=== PATIENT | male | born 1965 | race Caucasian/White ===

== ENCOUNTER 2016-10-13 11:22 | Emergency (ER) | payer OTHER ==
--- NOTE | 2016-10-13 12:44 | DIAGNOSTIC IMAGING REPORT ---
PROCEDURE: US VENOUS - RIGHT EXT INDICATION: Right lower extremity swelling x 2 days. TECHNIQUE: Duplex sonography of the deep venous system in the right lower extremity was performed. Compression and augmentation techniques were used. COMPARISON: None. FINDINGS: Normal compression of the greater saphenous, common femoral, superficial femoral, popliteal, peroneal, and posterior tibial veins. Normal augmentation. There is no evidence of superficial or deep venous thrombosis. There is a 2 cm reactive right inguinal lymph node present. IMPRESSION: 1. Negative venous ultrasound of the right lower extremity.
--- NOTE | 2016-10-13 13:04 | ED CLINICAL REPORT ---
Clinical Report - Physicians/Mid Levels [facility] [address] [place] [address] 10/13/2016 11:23 Patient: ADILSON DOYLE Time Seen: 1140; initial patient contact. Arrived- By private vehicle. Historian- patient. HISTORY OF PRESENT ILLNESS Chief Complaint: SKIN RASH. This started past few days and is still present and worsening. It was abrupt in onset and has been constant but is not gone now. It is described as painful. It has been located on the left lower extremity. No cause has been identified. (No history of DVT or PE. No recent trauma or prolonged immobilization. No recent surgery. No oral contraceptive use. No hormone replacement. No hemoptysis. No hematemesis. No chest pain. No shortness of breath.). Similar symptoms previously: None. Recent medical care: The patient was seen recently in a clinic (Total to the emergency department for evaluation of DVT.). REVIEW OF SYSTEMS No fever, chills, difficulty breathing or chest pain. All systems otherwise negative, except as recorded above. PAST HISTORY See nurses notes. Tetanus immunization status is up-to-date. Medications: Omeprazole Oral. Allergies: No Known Drug Allergy. SOCIAL HISTORY Never smoker. No alcohol use or drug use. No recent travel. Is a local resident. PHYSICAL EXAM Appearance: Alert. Oriented X3. No acute distress. Eyes: Pupils equal, round and reactive to light. Conjunctivae and eyelids normal. ENT: Ears normal. Nose normal. Pharynx normal. CVS: Normal heart rate and rhythm. Heart sounds normal. Respiratory: No respiratory distress. Breath sounds normal. Chest nontender. Abdomen: Nontender. No organomegaly. Skin: Medium area of cellulitis with erythema and warmth (right distal anterior leg). Extremities: Normal external inspection. Extremities nontender. LABS, X-RAYS, AND EKG Duplex Ultrasound: (PROCEDURE: US VENOUS - RIGHT EXT INDICATION: Right lower extremity swelling x 2 days. TECHNIQUE: Duplex sonography of the deep venous system in the right lower extremity was performed. Compression and augmentation techniques were used. COMPARISON: None. FINDINGS: Normal compression of the greater saphenous, common femoral, superficial femoral, popliteal, peroneal, and posterior tibial veins. Normal augmentation. There is no evidence of superficial or deep venous thrombosis. There is a 2 cm reactive right inguinal lymph node present. IMPRESSION: 1. Negative venous ultrasound of the right lower extremity.). The study was independently viewed by me and interpreted by the radiologist. The study was discussed with the radiologist (via pacs). Laboratory Tests: [id number]: (PAMELA: 10/13/2016 12:00) ( MsgRcvd 10/13/2016 12:33) Final results Test Result Flag Units (Reference) D-DIMER QUANTITATIVE < 0.27 L ug/mLFEU (0.27-0.52) The primary value of this quantitative assay relates toits negative predictive value (i.e. exclusion) of pulmonaryembolism/deep vein thrombosis/DIC.Elevated levels of d-dimer may also occur with:, age, cancer, inflammation, liver disease,post-op, infection, hematoma, coronary disease, peripheralarteriopathy, bleeding disorders and thrombolytic treatment.Results should be correlated with other clinical andradiological data.Testing Methodology: Latex Immunoassay . PROGRESS AND PROCEDURES Course of Care: he patient is a 51-year-old male with no pertinent past medical history presenting for Evaluation of swelling and redness the right lower extremity. Appears to be cellulitic in nature. Patient was told to go to the emergency department by primary care for a vaginal DVT. Although this is a possibility, feel the patient more likely has a cellulitic infection of the right lower currently. Patient is agreeable to the treatment plan for Evaluation of possible DVT. the patient's workup was remarkable for the findings above. Patient with a negative d-dimer and negative ultrasound of the affected extremity. Because the patient's negative workup in the emergency department, do not fill patient is a DVT. Feel the patient's workup is related to the cellulitic infection. Patient will be treated with outpatient antibiotics. Patient without any systemic symptoms. Vital signs are in the emergency D. Disposition: Discharged. Condition: good. CLINICAL IMPRESSION Hypertensive. Oxygen saturation normal. Cellulitis of the right lower leg (acute). INSTRUCTIONS Warnings: GENERAL WARNINGS: Return or contact your physician immediately if your condition worsens or changes unexpectedly, if not improving as expected, or if other problems arise. Specifically return if pain, vomiting, bleeding, breathing difficulty or fever. Your Current Medications: CONTINUE TAKING THE FOLLOWING MEDICATIONS: Omeprazole Oral. Prescription Medications: Bactrim DS 800 mg / 160 mg: take 1 tablet orally every 12 hours for 10 days. No refill. Substitution is permissible. Keflex 500 mg: take 1 capsule orally every 8 hours for 10 days. No refill. Substitution is permissible. (disp 30 caps) [place] 5 mg / 325 mg tablets: take 1 orally every 6 hours as needed for pain. Dispense ten (10). No refill. Substitution is permissible. OTC Medications: Motrin (available over the counter): take according to label instructions. Follow-up: Return to the emergency department as needed. Follow up with your doctor in three days. Reason for referral: recheck today's concerns. Summary of care provided to patient via paper. Screening today revealed the patient's blood pressure to be in the normal range. The patient should follow up with a primary care provider for blood pressure management. Understanding of the discharge instructions verbalized by patient. (Electronically signed by Reuben Ennis Dr. 10/16/2016 5:27)
--- NOTE | 2016-10-13 13:04 | ED ORDER SUMMARY ---
..... Patient: ADILSON DOYLE OrderSheet [facility] VisitID: [id number] [place] [address] 51y, M Registration Date/Time: 10/13/2016 ORDER SHEET Weight: 114.3 kg (stated) Allergies: No Known Drug Allergy GENERAL ORDERS: US Venous Right Urgent (11:48 10/13/2016 Ila Hammond) (Ack 11:51 Bella) (12:42 MWinterer R.N.) D-Dimer Urgent (11:48 10/13/2016 Ila Hammond) (Ack 11:51 Bella) (12:09 MWinterer R.N.) MEDICATION ORDERS: Bactrim DS PO (Tablet 800-160 mg) 1 tab (NOW) (11:48 10/13/2016 Ila Hammond) (Ack 11:54 MWinterer R.N.) (11:58 KWilliams R.N.) Keflex PO 500 mg (NOW) (11:48 10/13/2016 Ila Hammond) (Ack 11:54 MWinterer R.N.) (11:58 KWilliams R.N.) IV FLUIDS: ORDER SHEET NOTES: [Electronically signed by Mary Rand R.N. (17:11 10/13/2016)] [Electronically signed by Reuben Ennis Dr. (05:27 10/16/2016)] [Electronically locked/signed by Mary Rand R.N. (17:11 10/13/2016)]
--- NOTE | 2016-10-13 13:04 | ED NURSING NOTES ---
Clinical Report - Nurses [facility] [address] [place] [address] 10/13/2016 11:23 Patient: ADILSON DOYLE TRIAGE Acuity: LEVEL 3. Chief Complaint: RIGHT LOWER EXTREMITY PAIN, SWELLING and REDNESS. Alert. No acute distress. SEPSIS SCREEN: Sepsis Screen. Negative (no infection suspected/documented). --11:38 Mary Rand R.N. 11:32 10/13/16. BP: 156/84. HR: 90. RR: 16. O2 saturation: 98% on room air. Temp: 97.8 F (oral). Pain level now: 07/21. --11:38 Mary Rand R.N. <<STRICKEN ENTRY-- Weight: 0.9 kg stated. Height/Length: 71 inches Per Patient. BMI: 0.3. --END STRIKE>> Correction --11:37 Mary Rand R.N.. Weight: 114.3 kg stated. Height/Length: 71 inches Per Patient. BMI: 35.2. --11:37 Mary Rand R.N. Medications Omeprazole Oral. --11:36 Mary Rand R.N. Medication/allergy information source: the patient. --11:38 Mary Rand R.N. Allergies No Known Drug Allergy. --11:37 Mary Rand R.N. History Arrived by private vehicle. Historian: patient. Unaccompanied. Primary physician (Payton). This occurred (2 days ago). ( Pt reports chills and vomiting 2 days ago for 1 day. He states he also felt he had a "janene horse" in his right leg. He reports pain, swelling and redness to his right leg starting 2 days ago.). PAST MEDICAL HX: Immunizations: up-to-date. SOCIAL HX: Never smoker. No alcohol use or drug use. FALL RISK ASSESSMENT: Fall risk assessment completed. No fall risk identified. NUTRITIONAL RISK ASSESSMENT: The nutritional risk assessment revealed no deficiencies. FUNCTIONAL ASSESSMENT: Functional assessment: no impairments noted. LEARNING NEEDS ASSESSMENT: The learning needs assessment revealed no barriers. SKIN INTEGRITY ASSESSMENT: Skin integrity risk assessment completed. No skin integrity risk identified. --11:38 Mary Rand R.N. PROBLEMS: Ureterolithiasis. Gastroesophageal Reflux Disease. --11:37 Mary Rand R.N. ADDITIONAL SURGERIES: Hernia Repair. --11:37 Mary Rand R.N. Assessment GENERAL / NEURO / PSYCH: Alert. Oriented X 4. Appears in no acute distress. [place] Coma Scale: 15- eyes open spontaneously (4); best verbal response- oriented x 4 (5); best motor response- obeys commands (6). Patient appears calm and cooperative. RESPIRATORY: Respirations not labored. CVS: Capillary refill less than 2 seconds. GI / : Abdomen soft. SKIN: Mucous membranes are pink. Skin is warm and dry. --11:38 Mary Rand R.N. Interventions ID band on patient. To treatment room. Ambulatory. --11:38 Mary Rand R.N. PHYSICAL ASSESSMENT Ambulatory to room. GENERAL / NEURO / PSYCH: Oriented X 4. Alert. Appears in no acute distress. EXTREMITIES: 1+ edema of the right lower extremity involving the ankle and lower leg. Extremity pulses are within normal limits. Neuro-vascular status intact to the extremity. Normal gait. Right leg: tenderness, swelling and erythema. Right ankle: tenderness, swelling and erythema. SKIN: Skin intact. Skin is warm and dry. --11:43 Mary Rand R.N. NURSING PROGRESS NOTES Patient gowned. Two patient identifiers checked. Call light placed in reach. Side rails up x 1. Bed placed in lowest position. Brakes of bed on. Patient ready for evaluation- chart flagged and ED physician notified. --11:43 Mary Rand R.N. 11:58 10/13/2016 Bactrim DS (Sulfamethoxazole-TMP DS) PO Tablets 1 tab given. Allergies verified and confirmed 5 rights. --11:58 Guy Ahumada R.N. 11:58 10/13/2016 Keflex (Cephalexin) PO Capsules 500 mg given. Allergies verified and confirmed 5 rights. --11:58 Guy Ahumada R.N. 12:17 10/13/16. cnc technician at the patient's bedside. --12:17 Mary Rand R.N. DISPOSITION / DISCHARGE 13:41 10/13/16. BP: 130/78. HR: 82. RR: 20. O2 saturation: 98%. Temp: 99.1 F. --13:42 Rafia Soto Departure time: 13:35 Oct 13 2016. Condition at departure: improved and stable. No learning barriers present. Discharge instructions provided and reviewed with the patient. Reviewed medication(s). Prescription(s) given to the patient. Patient verbalized understanding. Written instructions provided in [place]. The patient was discharged by the physician. He was discharged home and accompanied by bag press operator. He left the Emergency Department ambulatory and via private vehicle. Winch Driver driving. --17:11 Mary Rand R.N. Locked/Released at 10/13/2016 17:11 by Mary Rand R.N.
--- NOTE | 2016-10-13 13:04 | ED ORDER SUMMARY ---
..... Patient: ADILSON DOYLE OrderSheet [facility] VisitID: [id number] [place] [address] 51y, M Registration Date/Time: 10/13/2016 ORDER SHEET Weight: 114.3 kg (stated) Allergies: No Known Drug Allergy GENERAL ORDERS: US Venous Right Urgent (11:48 10/13/2016 Ila Hammond) (Ack 11:51 Bella) (12:42 MWinterer R.N.) D-Dimer Urgent (11:48 10/13/2016 Ila Hammond) (Ack 11:51 Bella) (12:09 MWinterer R.N.) MEDICATION ORDERS: Bactrim DS PO (Tablet 800-160 mg) 1 tab (NOW) (11:48 10/13/2016 Ila Hammond) (Ack 11:54 MWinterer R.N.) (11:58 KWilliams R.N.) Keflex PO 500 mg (NOW) (11:48 10/13/2016 Ila Hammond) (Ack 11:54 MWinterer R.N.) (11:58 KWilliams R.N.) IV FLUIDS: ORDER SHEET NOTES: [Electronically signed by Mary Rand R.N. (17:11 10/13/2016)] [Electronically signed by Reuben Ennis Dr. (05:27 10/16/2016)] [Electronically locked/signed by Mayr Rand R.N. (17:11 10/13/2016)]
--- NOTE | 2016-10-13 13:04 | ED NURSING NOTES ---
Clinical Report - Nurses [address] [place] [address] 10/13/2016 11:23 Patient: ADILSON DOYLE TRIAGE Acuity: LEVEL 3. Chief Complaint: RIGHT LOWER EXTREMITY PAIN, SWELLING and REDNESS. Alert. No acute distress. SEPSIS SCREEN: Sepsis Screen. Negative (no infection suspected/documented). --11:38 Mary Rnad R.N. 11:32 10/13/16. BP: 156/84. HR: 90. RR: 16. O2 saturation: 98% on room air. Temp: 97.8 F (oral). Pain level now: 07/21. --11:38 Mary Rand R.N. <<STRICKEN ENTRY-- Weight: 0.9 kg stated. Height/Length: 71 inches Per Patient. BMI: 0.3. --END STRIKE>> Correction --11:37 Mary Rand R.N.. Weight: 114.3 kg stated. Height/Length: 71 inches Per Patient. BMI: 35.2. --11:37 Mary Rand R.N. Medications Omeprazole Oral. --11:36 Mary Rand R.N. Medication/allergy information source: the patient. --11:38 Mary Rand R.N. Allergies No Known Drug Allergy. --11:37 Mary Rand R.N. History Arrived by private vehicle. Historian: patient. Unaccompanied. Primary physician (Payton). This occurred (2 days ago). ( Pt reports chills and vomiting 2 days ago for 1 day. He states he also felt he had a "janene horse" in his right leg. He reports pain, swelling and redness to his right leg starting 2 days ago.). PAST MEDICAL HX: Immunizations: up-to-date. SOCIAL HX: Never smoker. No alcohol use or drug use. FALL RISK ASSESSMENT: Fall risk assessment completed. No fall risk identified. NUTRITIONAL RISK ASSESSMENT: The nutritional risk assessment revealed no deficiencies. FUNCTIONAL ASSESSMENT: Functional assessment: no impairments noted. LEARNING NEEDS ASSESSMENT: The learning needs assessment revealed no barriers. SKIN INTEGRITY ASSESSMENT: Skin integrity risk assessment completed. No skin integrity risk identified. --11:38 Mary Rand R.N. PROBLEMS: Ureterolithiasis. Gastroesophageal Reflux Disease. --11:37 Mary Rand R.N. ADDITIONAL SURGERIES: Hernia Repair. --11:37 Mary Rand R.N. Assessment GENERAL / NEURO / PSYCH: Alert. Oriented X 4. Appears in no acute distress. [place] Coma Scale: 15- eyes open spontaneously (4); best verbal response- oriented x 4 (5); best motor response- obeys commands (6). Patient appears calm and cooperative. RESPIRATORY: Respirations not labored. CVS: Capillary refill less than 2 seconds. GI / : Abdomen soft. SKIN: Mucous membranes are pink. Skin is warm and dry. --11:38 Mary Rand R.N. Interventions ID band on patient. To treatment room. Ambulatory. --11:38 Mary Rand R.N. PHYSICAL ASSESSMENT Ambulatory to room. GENERAL / NEURO / PSYCH: Oriented X 4. Alert. Appears in no acute distress. EXTREMITIES: 1+ edema of the right lower extremity involving the ankle and lower leg. Extremity pulses are within normal limits. Neuro-vascular status intact to the extremity. Normal gait. Right leg: tenderness, swelling and erythema. Right ankle: tenderness, swelling and erythema. SKIN: Skin intact. Skin is warm and dry. --11:43 Mary Rand R.N. NURSING PROGRESS NOTES Patient gowned. Two patient identifiers checked. Call light placed in reach. Side rails up x 1. Bed placed in lowest position. Brakes of bed on. Patient ready for evaluation- chart flagged and ED physician notified. --11:43 Mary Rand R.N. 11:58 10/13/2016 Bactrim DS (Sulfamethoxazole-TMP DS) PO Tablets 1 tab given. Allergies verified and confirmed 5 rights. --11:58 Guy Ahumada R.N. 11:58 10/13/2016 Keflex (Cephalexin) PO Capsules 500 mg given. Allergies verified and confirmed 5 rights. --11:58 Guy Ahumada R.N. 12:17 10/13/16. operations and maintenance technician at the patient's bedside. --12:17 Mary Rand R.N. DISPOSITION / DISCHARGE 13:41 10/13/16. BP: 130/78. HR: 82. RR: 20. O2 saturation: 98%. Temp: 99.1 F. --13:42 Rafia Soto Departure time: 13:35 Oct 13 2016. Condition at departure: improved and stable. No learning barriers present. Discharge instructions provided and reviewed with the patient. Reviewed medication(s). Prescription(s) given to the patient. Patient verbalized understanding. Written instructions provided in [place]. The patient was discharged by the physician. He was discharged home and accompanied by claim clinician. He left the Emergency Department ambulatory and via private vehicle. Burglar Alarm Superintendent driving. --17:11 Mary Rand R.N. Locked/Released at 10/13/2016 17:11 by Mary Rand R.N.
--- NOTE | 2016-10-16 05:27 | ED MAR SUMMARY ---
..... Medication Administration Record [facility] [address] [place] [address] Patient: ADILSON DOYLE Visit ID: [id number] 51y, M Weight: 114.3 kg Height/Length: 71 in BMI: 35.2 ALLERGIES: No Known Drug Allergy Given 11:10/13/2016 Guy Ahumada R.N. Medication Administered: BACTRIM DS [PO] (SULFAMETHOXAZOLE-TMP DS), Dose: 1 tab Tablets PO. Medication Ordered: Bactrim DS PO (Tablet 800-160 mg) 1 tab (NOW). Given 11:10/13/2016 Guy Ahumada R.N. Medication Administered: KEFLEX [PO] (CEPHALEXIN), Dose: 500 mg Capsules PO. Medication Ordered: Keflex PO 500 mg (NOW).
--- NOTE | 2016-10-16 05:27 | ED MED RECONCILIATION SUMMARY ---
Patient: ADILSON DOYLE Medication Reconciliation Report [facility] VisitID: [id number] [address] [place] [address] 51y, M Registration Date/Time: 10/13/2016 Weight: 114.3 kg Height/Length: 71 in. BMI: 35.2 ALLERGIES: No Known Drug Allergy The patient's Home Medications are listed below: CONTINUE TAKING THE FOLLOWING MEDICATIONS: Omeprazole Oral The source(s) of the original Home Medication information: patient The following Medications were given to the patient in the Emergency Department: Bactrim DS [PO] PO 1 tab, administered: 10/13/2016 11:58:00 AM Keflex [PO] PO 500 mg, administered: 10/13/2016 11:58:00 AM The following Medications were prescribed to the patient: Motrin (available over the counter): take according to label instructions. -- Reuben Ennis Dr. Bactrim DS 800 mg / 160 mg: take 1 tablet orally every 12 hours for 10 days. No refill. Substitution is permissible. -- Reuben Ennis Dr. Keflex 500 mg: take 1 capsule orally every 8 hours for 10 days. No refill. Substitution is permissible.(disp 30 caps) -- Reuben Ennis Dr. [place] 5 mg / 325 mg tablets: take 1 orally every 6 hours as needed for pain. Dispense ten (10). No refill. Substitution is permissible. -- Reuben Ennis Dr.
--- NOTE | 2016-10-16 05:27 | ED DISCHARGE INSTRUCTIONS ---
Patient: ADILSON DOYLE General Instructions [facility] VisitID: [id number] [place] [address] 51y, M Registration Date/Time: 10/13/2016 Hypertensive. Oxygen saturation normal. Cellulitis of the right lower leg (acute). INSTRUCTIONS Warnings: GENERAL WARNINGS: Return or contact your physician immediately if your condition worsens or changes unexpectedly, if not improving as expected, or if other problems arise. Specifically return if pain, vomiting, bleeding, breathing difficulty or fever. Your Current Medications: CONTINUE TAKING THE FOLLOWING MEDICATIONS: Omeprazole Oral. Prescription Medications: Bactrim DS 800 mg / 160 mg: take 1 tablet orally every 12 hours for 10 days. No refill. Substitution is permissible. Keflex 500 mg: take 1 capsule orally every 8 hours for 10 days. No refill. Substitution is permissible. (disp 30 caps) Terra [place] 5 mg / 325 mg tablets: take 1 orally every 6 hours as needed for pain. Dispense ten (10). No refill. Substitution is permissible. OTC Medications: Motrin (available over the counter): take according to label instructions. Follow-up: Return to the emergency department as needed. Follow up with your doctor in three days. Reason for referral: recheck today's concerns. Summary of care provided to patient via paper. Screening today revealed the patient's blood pressure to be in the normal range. The patient should follow up with a primary care provider for blood pressure management. Understanding of the discharge instructions verbalized by patient. ADDITIONAL INFORMATION Cellulitis You have an infection of the skin known as cellulitis. This usually starts with a scrape, cut, insect bite, blister or other opening in the skin which becomes infected. This is a serious condition. It must be watched closely to be sure the infection is not spreading. With antibiotic treatment, the size of the red area will gradually shrink in size until the skin returns to normal. This will take 7-10 days. The red area should never increase in size once the antibiotic medicine has been started. Occasionally, an infection will be resistant to one antibiotic and another one will have to be used. Home Care: 1) Limit the use of the affected part, since excess movement can cause the infection to spread. 2) If the infection is on your leg, walk as little as possible during the first few days of the treatment. Keep your leg elevated while sitting. This will reduce swelling. 3) Take all of the antibiotic medicine exactly as directed until it is gone. Be careful not to miss any doses, especially during the first seven days. Follow Up with your doctor or this facility as directed. Check the infected area daily for the warning signs listed below. Get Prompt Medical Attention if any of the following occur: -- Spreading area of redness -- Increasing swelling or pain -- Appearance of pus or drainage -- Fever over 100.4 F (38.0 C) oral, or over 101.4 F (38.6 C) rectal, after two days on antibiotics Sulfamethoxazole, Trimethoprim Oral tablet What is this medicine? SULFAMETHOXAZOLE; TRIMETHOPRIM or SMX-TMP (suhl fuh meth OK santos zohl; trye METH oh prim) is a combination of a sulfonamide antibiotic and a second antibiotic, trimethoprim. It is used to treat or prevent certain kinds of bacterial infections. It will not work for colds, flu, or other viral infections. How should I use this medicine? Take this medicine by mouth with a full glass of water. Follow the directions on the prescription label. Take your medicine at regular intervals. Do not take it more often than directed. Do not skip doses or stop your medicine early. Talk to your alterations expert regarding the use of this medicine in children. Special care may be needed. This medicine has been used in children as young as 2 months of age. What side effects may I notice from receiving this medicine? Side effects that you should report to your doctor or health ambulatory care nurse as soon as possible: allergic reactions like skin rash or hives, swelling of the face, lips, or tongue breathing problems fever or chills, sore throat irregular heartbeat, chest pain joint or muscle pain pain or difficulty passing urine red pinpoint spots on skin redness, blistering, peeling or loosening of the skin, including inside the mouth unusual bleeding or bruising unusually weak or tired yellowing of the eyes or skin Side effects that usually do not require medical attention (report to your doctor or health ambulatory care nurse if they continue or are bothersome): diarrhea dizziness headache loss of appetite nausea, vomiting nervousness What may interact with this medicine? Do not take this medicine with any of the following medications: aminobenzoate potassium dofetilide metronidazole This medicine may also interact with the following medications: CHICHO inhibitors like benazepril, enalapril, lisinopril, and ramipril cyclosporine digoxin diuretics indomethacin medicines for diabetes methenamine methotrexate phenytoin potassium supplements pyrimethamine sulfinpyrazone tricyclic antidepressants warfarin What if I miss a dose? If you miss a dose, take it as soon as you can. If it is almost time for your next dose, take only that dose. Do not take double or extra doses. Where should I keep my medicine? Keep out of the reach of children. Store at room temperature between 20 to 25 degrees C (68 to 77 degrees F). Protect from light. Throw away any unused medicine after the expiration date. What should I tell my health care provider before I take this medicine? They need to know if you have any of these conditions: anemia asthma being treated with anticonvulsants if you frequently drink alcohol containing drinks kidney disease liver disease low level of folic acid or [id number] dehydrogenase poor nutrition or malabsorption porphyria severe allergies thyroid disorder an unusual or allergic reaction to sulfamethoxazole, trimethoprim, sulfa drugs, other medicines, foods, dyes, or preservatives or trying to get breast-feeding What should I watch for while using this medicine? Tell your doctor or health ambulatory care nurse if your symptoms do not improve. Drink several glasses of water a day to reduce the risk of kidney problems. Do not treat diarrhea with over the counter products. Contact your doctor if you have diarrhea that lasts more than 2 days or if it is severe and watery. This medicine can make you more sensitive to the sun. Keep out of the sun. If you cannot avoid being in the sun, wear protective clothing and use a sunscreen. Do not use sun lamps or tanning beds/booths. Cephalexin Monohydrate Oral tablet What is this medicine? CEPHALEXIN (sef a JOSHUA in) is a cephalosporin antibiotic. It is used to treat certain kinds of bacterial infections It will not work for colds, flu, or other viral infections. How should I use this medicine? Take this medicine by mouth with a full glass of water. Follow the directions on the prescription label. This medicine can be taken with or without food. Take your medicine at regular intervals. Do not take your medicine more often than directed. Take all of your medicine as directed even if you think you are better. Do not skip doses or stop your medicine early. Talk to your alterations expert regarding the use of this medicine in children. While this drug may be prescribed for selected conditions, precautions do apply. What side effects may I notice from receiving this medicine? Side effects that you should report to your doctor or health ambulatory care nurse as soon as possible: allergic reactions like skin rash, itching or hives, swelling of the face, lips, or tongue breathing problems pain or trouble passing urine redness, blistering, peeling or loosening of the skin, including inside the mouth severe or watery diarrhea unusually weak or tired yellowing of the eyes, skin Side effects that usually do not require medical attention (report to your doctor or health ambulatory care nurse if they continue or are bothersome): gas or heartburn genital or anal irritation headache joint or muscle pain nausea, vomiting What may interact with this medicine? probenecid some other antibiotics What if I miss a dose? If you miss a dose, take it as soon as you can. If it is almost time for your next dose, take only that dose. Do not take double or extra doses. There should be at least 4 to 6 hours between doses. Where should I keep my medicine? Keep out of the reach of children. Store at room temperature between 59 and 86 degrees F (15 and 30 degrees C). Throw away any unused medicine after the expiration date. What should I tell my health care provider before I take this medicine? They need to know if you have any of these conditions: kidney disease stomach or intestine problems, especially colitis an unusual or allergic reaction to cephalexin, other cephalosporins, penicillins, other antibiotics, medicines, foods, dyes or preservatives or trying to get breast-feeding What should I watch for while using this medicine? Tell your doctor or health ambulatory care nurse if your symptoms do not begin to improve in a few days. Do not treat diarrhea with over the counter products. Contact your doctor if you have diarrhea that lasts more than 2 days or if it is severe and watery. If you have diabetes, you may get a false-positive result for sugar in your urine. Check with your doctor or health ambulatory care nurse. Hydrocodone Bitartrate, Acetaminophen Oral tablet What is this medicine? ACETAMINOPHEN; HYDROCODONE (a set a EDMOND saeed fen; stacy droe KOE done) is a pain reliever. It is used to treat mild to moderate pain. How should I use this medicine? Take this medicine by mouth. Swallow it with a full glass of water. Follow the directions on the prescription label. If the medicine upsets your stomach, take the medicine with food or milk. Do not take more than you are told to take. Talk to your alterations expert regarding the use of this medicine in children. This medicine is not approved for use in children. What side effects may I notice from receiving this medicine? Side effects that you should report to your doctor or health ambulatory care nurse as soon as possible: allergic reactions like skin rash, itching or hives, swelling of the face, lips, or tongue breathing problems confusion feeling faint or lightheaded, falls stomach pain yellowing of the eyes or skin Side effects that usually do not require medical attention (report to your doctor or health ambulatory care nurse if they continue or are bothersome): nausea, vomiting stomach upset What may interact with this medicine? alcohol antihistamines isoniazid medicines for depression, anxiety, or psychotic disturbances medicines for sleep muscle relaxants naltrexone narcotic medicines (opiates) for pain phenobarbital ritonavir tramadol What if I miss a dose? If you miss a dose, take it as soon as you can. If it is almost time for your next dose, take only that dose. Do not take double or extra doses. Where should I keep my medicine? Keep out of the reach of children. This medicine can be abused. Keep your medicine in a safe place to protect it from theft. Do not share this medicine with anyone. Selling or giving away this medicine is dangerous and against the law. Store at room temperature between 15 and 30 degrees C (59 and 86 degrees F). Protect from light. Keep container tightly closed. Throw away any unused medicine after the expiration date. Discard unused medicine and used packaging carefully. Pets and children can be harmed if they find used or lost packages. What should I tell my health care provider before I take this medicine? They need to know if you have any of these conditions: brain tumor Crohn's disease, inflammatory bowel disease, or ulcerative colitis drink more than 3 alcohol-containing drinks per day drug abuse or addiction head injury heart or circulation problems kidney disease or problems going to the bathroom liver disease lung disease, asthma, or breathing problems an unusual or allergic reaction to acetaminophen, hydrocodone, other opioid analgesics, other medicines, foods, dyes, or preservatives or trying to get breast-feeding What should I watch for while using this medicine? Tell your doctor or health ambulatory care nurse if your pain does not go away, if it gets worse, or if you have new or a different type of pain. You may develop tolerance to the medicine. Tolerance means that you will need a higher dose of the medicine for pain relief. Tolerance is normal and is expected if you take the medicine for a long time. Do not suddenly stop taking your medicine because you may develop a severe reaction. Your body becomes used to the medicine. This does NOT mean you are addicted. Addiction is a behavior related to getting and using a drug for a non-medical reason. If you have pain, you have a medical reason to take pain medicine. Your doctor will tell you how much medicine to take. If your doctor wants you to stop the medicine, the dose will be slowly lowered over time to avoid any side effects. You may get drowsy or dizzy when you first start taking the medicine or change doses. Do not drive, use machinery, or do anything that may be dangerous until you know how the medicine affects you. Stand or sit up slowly. There are different types of narcotic medicines (opiates) for pain. If you take more than one type at the same time, you may have more side effects. Give your health care provider a list of all medicines you use. Your doctor will tell you how much medicine to take. Do not take more medicine than directed. Call emergency for help if you have problems breathing. The medicine will cause constipation. Try to have a bowel movement at least every 2 to 3 days. If you do not have a bowel movement for 3 days, call your doctor or health ambulatory care nurse. Too much acetaminophen can be very dangerous. Do not take Tylenol (acetaminophen) or medicines that contain acetaminophen with this medicine. Many non-prescription medicines contain acetaminophen. Always read the labels carefully. You have been given the following additional information: Cellulitis Sulfamethoxazole, Trimethoprim Oral tablet Cephalexin Monohydrate Oral tablet Hydrocodone Bitartrate, Acetaminophen Oral tablet (Electronically signed by Reuben Ennis Dr. 10/16/2016 5:27)
--- NOTE | 2016-10-16 05:27 | ED MAR SUMMARY ---
..... Medication Administration Record [facility] [address] [place] [address] Patient: ADILSON DOYLE Visit ID: [id number] 51y, M Weight: 114.3 kg Height/Length: 71 in BMI: 35.2 ALLERGIES: No Known Drug Allergy Given 11:10/13/2016 Guy Ahumada R.N. Medication Administered: BACTRIM DS [PO] (SULFAMETHOXAZOLE-TMP DS), Dose: 1 tab Tablets PO. Medication Ordered: Bactrim DS PO (Tablet 800-160 mg) 1 tab (NOW). Given 11:10/13/2016 Guy Ahumada R.N. Medication Administered: KEFLEX [PO] (CEPHALEXIN), Dose: 500 mg Capsules PO. Medication Ordered: Keflex PO 500 mg (NOW).
--- NOTE | 2016-10-16 05:27 | ED MED RECONCILIATION SUMMARY ---
Patient: ADILSON DOYLE Medication Reconciliation Report [facility] VisitID: [id number] [address] [place] [address] 51y, M Registration Date/Time: 10/13/2016 Weight: 114.3 kg Height/Length: 71 in. BMI: 35.2 ALLERGIES: No Known Drug Allergy The patient's Home Medications are listed below: CONTINUE TAKING THE FOLLOWING MEDICATIONS: Omeprazole Oral The source(s) of the original Home Medication information: patient The following Medications were given to the patient in the Emergency Department: Bactrim DS [PO] PO 1 tab, administered: 10/13/2016 11:58:00 AM Keflex [PO] PO 500 mg, administered: 10/13/2016 11:58:00 AM The following Medications were prescribed to the patient: Motrin (available over the counter): take according to label instructions. -- Reuben Ennis Dr. Bactrim DS 800 mg / 160 mg: take 1 tablet orally every 12 hours for 10 days. No refill. Substitution is permissible. -- Reuben Ennis Dr. Keflex 500 mg: take 1 capsule orally every 8 hours for 10 days. No refill. Substitution is permissible.(disp 30 caps) -- Reuben Ennis Dr. [place] 5 mg / 325 mg tablets: take 1 orally every 6 hours as needed for pain. Dispense ten (10). No refill. Substitution is permissible. -- Reuben Ennis Dr.
== END 2016-10-13 13:35 | disposition home or self-care (01) ==
LOC: ED SRH 11:22
DX: L03.115 Cellulitis of right lower limb (principal); R03.0 Elevated blood-pressure reading, without diagnosis of hypertension